=== PATIENT | female | born 1930 | race Caucasian/White ===

== ENCOUNTER 2016-12-03 13:26 | Outpatient (CLI) | payer MEDICARE | END 2016-12-03 13:27 | disposition home or self-care (01) | LOC: CP 13:26 | PROVIDERS: ATTEND Internal Medicine | DX: R05 Cough (principal); K21.9 Gastro-esophageal reflux disease without esophagitis | CPT/HCPCS: 94010; 94727; 94729 ==

== ENCOUNTER 2017-07-28 15:46 | Emergency (ER) | payer MEDICARE ==
--- NOTE | 2017-07-28 16:33 | RAD ---
LEFT WRIST THREE VIEW 07/28/17 HISTORY: Trauma. COMPARISON: None. FINDINGS: Nondisplaced fracture of the radial styloid. Moderate joint effusion of the radiocarpal joint. Modera te degenerative disease of the thumb carpometacarpal joint. IMPRESSION: Nondisplaced radial styloid fracture, intra-articular. POS: [facility]
--- NOTE | 2017-07-28 17:02 | CT ---
CT OF THE BRAIN WITHOUT CONTRAST: 07/28/17 HISTORY: Trauma. Left eye laceration. Fall. COMPARISON: None. FINDINGS: There is extensive periventricular and deep white matter microvascular ischemic changes. Mild to mode rate atrophy. No hemorrhage. No midline shift. No large volume infarction. The paranasal sinuses and mastoids are clear. IMPRESSION: Extensive chronic changes. No acute intracranial abnormality. POS: [facility]
[2017-07-28] MEDS ORDERED: Bacitracin Zinc 1 Packet ONE (17:17)
== END 2017-07-28 17:45 | disposition home or self-care (01) ==
LOC: ERS 15:46
DX: S52.502A Unspecified fracture of the lower end of left radius, initial encounter for closed fracture (principal); S00.212A Abrasion of left eyelid and periocular area, initial encounter; S09.90XA Unspecified injury of head, initial encounter; K21.9 Gastro-esophageal reflux disease without esophagitis; I10 Essential (primary) hypertension; Z86.718 Personal history of other venous thrombosis and embolism; F41.9 Anxiety disorder, unspecified; F32.9 Major depressive disorder, single episode, unspecified; Z79.899 Other long term (current) drug therapy; Z79.82 Long term (current) use of aspirin; W22.8XXA Striking against or struck by other objects, initial encounter
CPT/HCPCS: 70450

== ENCOUNTER 2017-07-29 11:31 | Emergency (ER) | payer MEDICARE ==
[2017-07-29 11:59] LABS: #Eosinphils 0.1 thou/uL (0.0-0.7); #Lymphocytes 1.4 thou/uL (1.20-3.40); #Monocytes 0.4 thou/uL (0.11-0.59); #Neutrophils 4.6 thou/uL (1.40-6.50); %Basophils 0.3 % (0.0-1.0); %Eosinophils 1.3 % (0.0-10.0); %Lymphocytes 21.1 % (21.0-51.0); %Monocytes 6.7 % (0.0-10.0); %Neutrophils 70.6 % (42.0-75.0); Hemoglobin 13.1 g/dL (12.0-16.0); Mean Corpuscular HGB CONC 33.6 g/dL (32.0-36.0); Mean Corpuscular Hemoglobin 31.1 pg (27.0-31.0); Mean Corpuscular Volume 92.4 fl (81.0-99.0); Mean Platelet Volume 6.7 fL (7.4-10.4); Platelet Count 251 thou/uL (130-400); RBC Distribution Width 12.1 % (11.5-14.5); Red Blood Cell (RBC) Count 4.22 mill/uL (4.20-5.40); White Blood Cell (WBC) Count 6.5 thou/uL (4.8-10.8)
[2017-07-29 12:26] LABS: CKMB 1.2 ng/mL (0-6.6); Troponin I Less than 0.010 ng/mL (< 0.028)
[2017-07-29 12:27] LABS: ALT (SGPT) 13 U/L (8-55); AST (SGOT) 21 U/L (5-34); Albumin 4.2 g/dL (3.4-4.8); Alkaline Phosphatase 92 U/L (40-150); Anion Gap 14 mmol/L (10-20); BUN (Urea Nitrogen) 12 mg/dL (9.8-20.1); Bilirubin, Total 0.6 mg/dL (0.2-1.2); CK (CPK) 104 U/L (29-168); Calc. Creatinine Clearance 0 mL/min (70-130); Calcium 9.4 mg/dL (7.8-10.44); Carbon Dioxide 27 mmol/L (23-31); Chloride 102 mmol/L (98-107); Estimated GFR-MDRD 85; Globulin 2.5 g/dL (2.4-3.5); Glucose 93 mg/dL (83-110); Potassium 3.5 mmol/L (3.5-5.1); Protein, Total 6.7 g/dL (6.0-8.3); Sodium 139 mmol/L (136-145)
--- NOTE | 2017-07-29 12:31 | RAD ---
PORTABLE CHEST: HISTORY: The patient is status post fall. contusions along the right chest. FINDINGS: Heart size within normal limits. There are atherosclerosis changes of the aorta. The bones are rosanna neralized. No rib fractures are identified. IMPRESSION: No active intrathoracic disease. POS: [facility]
--- NOTE | 2017-07-29 13:05 | CT ---
CT OF BRAIN PERFORMED WITHOUT CONTRAST ENHANCEMENT: COMPARISON: Prior day's study. HISTORY: The patient fell with head injury. FINDINGS: There is generalized ventricular and sulcal prominence. There are areas compatible with chronic isch emic white matter change. There is old lacunar infarct noted in the right basal ganglia region. The re are no signs of intracerebral hemorrhage or extraaxial fluid collections. Mastoid air cells and v isualized sinuses are clear. IMPRESSION: No acute intracranial abnormalities. POS: [facility]
[2017-07-29 13:40] LABS: Bilirubin Negative (Negative); Blood, Urine Small (Negative); Clarity TURBID (Clear); Glucose, Urine (Dipstick) Negative (Negative); Leukocyte Large (Negative); Nitrite Positive (Negative); Protein, Urine (Dipstick) 30 mg/dL (Neg-Trace); Specific Gravity, Urine 1.014 (1.002-1.036); Urobilinogen 0.2 mg/dL (0.2-1.0); pH, Urine 7.5 (5.0-9.0)
[2017-07-29 13:49] LABS: Bacteria/HPF 4+ HPF (None Seen); Hyaline Casts/LPF 0-3 HYALINE CAST LPF (0-3 Hyaline); Pathc Cast-AUWi Flag 0.87 (0-2.49); RBC/HPF 21-50 HPF (0-3); Squamous Epithelial None Seen HPF (0-3)
[2017-07-29] MEDS ORDERED: cefTRIAXone\\ROCEPHIN 1 GM VIAL ONE (14:12)
[2017-07-29] MEDS ORDERED: Nitrofurantoin Monohyd/M-Cryst 100 MG CAP PO SCH (14:30)
== END 2017-07-29 17:02 | disposition home or self-care (01) ==
LOC: ERS 11:31
DX: S50.11XA Contusion of right forearm, initial encounter (principal); S00.83XA Contusion of other part of head, initial encounter; K21.9 Gastro-esophageal reflux disease without esophagitis; I10 Essential (primary) hypertension; F32.9 Major depressive disorder, single episode, unspecified; F41.9 Anxiety disorder, unspecified; Z86.718 Personal history of other venous thrombosis and embolism; Z79.82 Long term (current) use of aspirin; W01.0XXA Fall on same level from slipping, tripping and stumbling without subsequent striking against object, initial encounter
CPT/HCPCS: 70450; 71045; 80053; 81003; 81015; 82553; 84484; 85025; 93005; 96365; J0696

== ENCOUNTER 2017-08-18 14:56 | Emergency (ER) | payer MEDICARE | END 2017-08-18 16:04 | disposition home or self-care (01) | LOC: SCSER 14:56 | DX: R04.0 Epistaxis (principal); K21.9 Gastro-esophageal reflux disease without esophagitis; I10 Essential (primary) hypertension; Z86.718 Personal history of other venous thrombosis and embolism; F41.9 Anxiety disorder, unspecified; F32.9 Major depressive disorder, single episode, unspecified; Z79.899 Other long term (current) drug therapy; Z79.82 Long term (current) use of aspirin | CPT/HCPCS: 99284 ==

== ENCOUNTER 2018-02-07 16:08 | Emergency (ER) | payer MEDICARE ==
[2018-02-07] MEDS ORDERED: Lidocaine 1% PF 5 ML VIAL ONE (16:57)
--- NOTE | 2018-02-07 17:31 | CT ---
CT BRAIN WITHOUT CONTRAST: HISTORY: Head injury. Fall. COMPARISON: 07/29/2017 FINDINGS: Changes of chronic small vessel ischemic disease are again seen. The ventricular size is stable, and the basilar cisterns are patent. Old lacunar infarcts are again noted. No evidence of acute infarct, hemorrhage, midline shift, or abnormal extraaxial fluid collections is seen. The bony calvarium is intact. The visualized paranasal sinuses and mastoid air cells are well aerated. IMPRESSION: No CT evidence of acute intracranial process. POS: [facility]
--- NOTE | 2018-02-07 17:32 | RAD ---
LEFT HAND THREE VIEWS: HISTORY: Fall with laceration to left thumb. 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 I do not see any signs of fracture or dislocation. No radiopaque foreign bodies are visualized. IMPRESSION: No evidence of fracture. POS: [facility]
--- NOTE | 2018-02-07 17:33 | CT ---
CT CERVICAL SPINE WITH CORONAL AND SAGITTAL REFORMATIONS: HISTORY: Fall. Head injury. FINDINGS: Multilevel degenerative changes are present. There is minimal anterolisthesis of C4/C5. No fracture , dislocation, or facet malalignment is seen. POS: [facility]
--- NOTE | 2018-02-07 18:41 | RAD ---
PORTABLE CHEST: HISTORY: The patient fell today with bruising and diffuse pain. COMPARISON: 07/29/2017 FINDINGS: Heart size is within normal limits. There are atherosclerotic changes of the aorta. The lungs are c lear of any infiltrative process. The bones appear demineralized. I do not appreciate any rib fract ures. IMPRESSION: No active intrathoracic disease. POS: [facility]
== END 2018-02-07 18:00 | disposition home or self-care (01) ==
LOC: ERS 16:08
DX: S01.112A Laceration without foreign body of left eyelid and periocular area, initial encounter (principal); S61.512A Laceration without foreign body of left wrist, initial encounter; S20.212A Contusion of left front wall of thorax, initial encounter; K21.9 Gastro-esophageal reflux disease without esophagitis; I10 Essential (primary) hypertension; F41.9 Anxiety disorder, unspecified; F32.9 Major depressive disorder, single episode, unspecified; Z79.899 Other long term (current) drug therapy; Z79.82 Long term (current) use of aspirin; W01.0XXA Fall on same level from slipping, tripping and stumbling without subsequent striking against object, initial encounter
CPT/HCPCS: 12013; 70450; 71045; 72125; J2001

== ENCOUNTER 2018-07-25 15:07 | Emergency (ER) | payer MEDICARE ==
--- NOTE | 2018-07-25 15:28 | RAD ---
XR Hand Lt 3 View STANDARD History: Injury. Trauma. Comparison: Radiograph 2018 Findings: Acute fracture, intra-articular, of the base of the proximal phalanx small finger. Advanced degenerative disease of the thumb carpometacarpal joint. Old injury of the fifth metacarpal neck. Moderate dorsal angulation of the fifth proximal phalanx fracture. Impression: Intra-articular fracture base of the proximal phalanx small finger with moderate dorsal a ngulation.
== END 2018-07-25 16:28 | disposition home or self-care (01) ==
LOC: ERS 15:07
DX: S62.617A Displaced fracture of proximal phalanx of left little finger, initial encounter for closed fracture (principal); K21.9 Gastro-esophageal reflux disease without esophagitis; I10 Essential (primary) hypertension; F41.9 Anxiety disorder, unspecified; F32.9 Major depressive disorder, single episode, unspecified; W01.0XXA Fall on same level from slipping, tripping and stumbling without subsequent striking against object, initial encounter
CPT/HCPCS: 26700